=== PATIENT | male | born 1955 | race Caucasian/White ===

== ENCOUNTER 2024-07-09 22:24 | Emergency (ER) | payer OTHER, SELFPAY ==
[2024-07-09 22:32] VITALS: BP 170/125
[2024-07-09 22:59] LABS: % Basophils 0.3 % (0-2); % Eosinophils 0.2 % (0-6); % Immature Granulocytes 0.4 % (0-0.5); % Lymphocytes 6.6 % (20.5-51.1); % Monocytes 11.1 % (1.7-9.3); % Neutrophils 81.4 % (42.2-75.2); Absolute Lymphocytes 0.7 10^3/uL (1.2-3.4); Absolute Monocytes 1.1 10^3/uL (0.1-0.6); Absolute Neutrophils 8.4 10^3/uL (1.4-6.5); Hematocrit 41.2 % (39.0-52.0); Hemoglobin 14.9 g/dL (13.0-18.0); Mean Corp Hgb Conc. 36.2 g/dL (33.0-37.0); Mean Corpuscular Hgb 30.3 pg (27.0-31.0); Mean Corpuscular Volume 83.9 fL (80.0-94.0); Mean Platelet Volume 9.6 fL (7.4-10.4); Nucleated Red Blood Cells % 0 % (-); Platelet Count 289 10^3/uL (130-400); Red Blood Cell Count 4.91 10^6/uL (4.70-6.10); Red Cell Dist. Width 12.2 % (11.5-14.5); White Blood Cell Count 10.3 10^3/uL (4.8-10.8)
[2024-07-09 23:20] LABS: Lipase 34 U/L (23-300)
[2024-07-10 00:21] LABS: ALT (SGPT) 27 U/L (0-50); AST (SGOT) 31 U/L (17-59); Albumin 4.7 g/dl (3.5-5.0); Alkaline Phosphatase 78 U/L (38-126); Blood Urea Nitrogen 11 mg/dl (9-20); Calcium 9.9 mg/dl (8.4-10.2); Carbon Dioxide 23 mmol/L (22-30); Chloride 94 mmol/L (98-107); Glucose 142 mg/dl (70-99); Potassium 4.2 mmol/L (3.5-5.1); Sodium 127 mmol/L (135-145); Total Bilirubin 0.9 mg/dl (0.2-1.3); Total Protein 7.5 g/dl (6.3-8.2); eGFR > 60.00
[2024-07-10] MEDS: VALIUM INJECTION 2.5 MG IV (01:12)
--- NOTE | 2024-07-10 01:22 | ED.GENMED ---
History of Present Illness
General
Chief Complaint: Abdominal Symptoms
Source: patient
Exam Limitations: none
Time Seen by Provider: 07/09/24 23:57
Nursing documentation reviewed up to this point in time: agreed with
History of Present Illness
History of Present Illness:
This a pleasant 68-year-old male presents to the emergency department with lower abdominal pain, urinary retention, and constipation. Patient states that symptoms began this afternoon. Went to urgent care and given medication without improvement.
Came here is still not having urinated and was seen for urinary retention. Bladder scan showed a full bladder. Several attempts by nursing to place a Estrada catheter were unsuccessful. I did attempt with a coud�. I used a 16 [place] and very
gently I tried to pass the catheter. I did meet resistance. I did not try to push past the prostate. I contacted Dr. Omer. He came into the emergency department and was able to place a Estrada using a cystoscope. Patient is not on any blood
thinners. He works as a chiropractor
Review of Systems
Review of Systems
Allergies reviewed?: Yes
All Other Systems: ROS reviewed and negative except as documented in HPI and ROS
Constitutional: Reports no symptoms
EENT: Reports no symptoms
Respiratory: Reports no symptoms
Cardiac: Reports no symptoms
ABD/GI: Reports abdominal pain
: Reports difficulty voiding
Musculoskeletal: Reports no symptoms
Skin: Reports no symptoms
Neurological: Reports no symptoms
Endocrine: Reports no symptoms
Hematologic/Lymphatic: Reports no symptoms
Psychiatric: Reports no symptoms
Phy Exam
General Physical Exam
General Presentation: moderate distress
General age: appears stated age
General Skin: warm and dry
General Habitus: normal
General Mental: alert
General Hydration: appears well hydrated
Cardiovascular Exam
Cardiovascular Exam: regular rate/rhythm and no edema
Pulmonary Exam
Pulmonary Exam: lungs clear and no respiratory distress
Neurological Exam
Neurological Exam: alert and oriented x3
Musculoskeletal Exam
Musculoskeletal Exam: full ROM and neck pain
Skin Exam
Skin Exam: normal color and warm/dry
Psychiatric Exam
Psychiatric Exam: normal mood/affect
Course
Orders/Labs/Results
Orders:
Orders
07/09/24 22:36
EKG [Electrocardiogram (*1)] Urgent
Reason for Study: Abdominal Pain
EKG- Treatment ONCE
07/09/24 22:51
CBC/With Diff [Complete Blood Count/With Diff] Urgent
Lipase Urgent
07/09/24 23:54
Comprehensive Metabolic Panel Urgent
07/10/24 01:08
diazePAM [Valium Injection] 10 mg .ROUTE .STK-MED ONE
07/10/24 01:11
diazePAM [Valium Injection] 2.5 mg IV NOW STA
07/10/24 01:40
Sulfamethox./Trimethoprim Ds [Bactrim Ds 800 mg/160 mg] 1 tablet PO NOW STA
Tamsulosin [Flomax] 0.4 mg PO NOW STA
07/10/24 01:54
Urine Culture Urgent
AFIA Source: Urine
Specimen Description:
Obtained by: Indwelling Catheter
Date Specimen was Collected: 07/10/24
Time Specimen was Collected: 01:52
07/10/24 02:06
0.9% Sodium Chloride 500 ml [Nss] 500 ml IV BOLUS
Abnormal Lab Results
07/09/24 07/09/24
22:51 23:54
Absolute Neuts (auto) 8.4 H 10^3/uL
(1.4-6.5)
Absolute Lymphs (auto) 0.7 L 10^3/uL
(1.2-3.4)
Absolute Monos (auto) 1.1 H 10^3/uL
(0.1-0.6)
Neutrophils % 81.4 H %
(42.2-75.2)
Lymphocytes % 6.6 L %
(20.5-51.1)
Monocytes % 11.1 H %
(1.7-9.3)
Sodium 127 L mmol/L
(135-145)
Chloride 94 L mmol/L
(98-107)
Glucose 142 H mg/dl
(70-99)
07/09/24 22:51
07/09/24 23:54
Vital Signs
Initial and Last Documented VS:
Initial Vital Signs
Temp Pulse Resp BP Pulse Ox
97.6 F 135 15 170/125 97
07/09/24 22:32 07/09/24 22:32 07/09/24 22:32 07/09/24 22:32 07/09/24 22:32
Last Documented Vital Signs
Temp Pulse Resp BP Pulse Ox
97.6 F 94 18 158/95 96
07/09/24 22:32 07/10/24 01:56 07/10/24 01:56 07/10/24 01:56 07/10/24 01:56
*Critical Care Note
Total Time (30-74mins, 75-104mins- exclusive of procedures): Not Applicable
Update Note
Update Note:
Dr. Omer present at the bedside
Dr. Omer was able to do a cystoscope and placed a Estrada using Seldinger technique. 2200 cc of clear yellow urine drained. Patient tolerated procedure well. Will be started on Bactrim. Will be given Flomax. Will follow-up with Dr. Omer in
his office sometime next week.
ED Attending Note
-
Portions of this chart may have been created with voice recognition software.� Occasional wrong word or��sound alike� substitutions may have occurred due to the inherent limitations of voice recognition software.
Discharge Plan
Departure
Patient Disposition: Home (Routine Discharge)
Date of Disposition: 07/10/24
Time of Disposition: 01:38
Patient with high blood pressure during this ER visit?: Yes
Condition: Good
Discharge Problem:
Acute urinary retention, Hyponatremia
Instructions: How to Care for Your Estrada Catheter, Male, Hyponatremia, Urinary retention - Discharge instructions
Prescriptions:
New
sulfamethoxazole-trimethoprim [Bactrim DS] 800-160 mg tablet
1 tab PO BID Qty: 20 0RF
tamsulosin [Flomax] 0.4 mg capsule
0.4 mg PO DAILY Qty: 7 0RF
Referrals:
Ridge Omer Jr., MD [Active] - Call in 1-3 days for appt
EDI CELESTIN MD [Primary Care Provider] -
Activity Restrictions/Additional Instructions:
Please continue to manage your hyponatremia, as discussed
It was a pleasure meeting you and taking part in your care. We hope for your continued healing and wellness.
Please read discharge instructions in their entirety. However, they are for general education and may not describe your exact diagnosis at discharge. Information on your ER visit and medical conditions were discussed with you along with appropriate
follow up information...
If indicated, please take your medications as instructed and indicated on discharge paperwork.
Please schedule a follow up appointment as directed. Call to schedule an appointment
Please return to the emergency department with ANY change in, persisting, or worsening of symptoms. If any of your symptoms do not improve, or persist, or become more severe within 6-12 hours, please return to the emergency department for further
care.
Please return to the emergency department if you develop a headache, neck pain/stiffness, fever greater than 100.4F, chest pain, shortness of breath, persistent nausea, vomiting, slurred speech, difficulty walking, numbness/tingling, weakness, signs
of infection or any other symptoms that are worrisome to you.
If you have any questions or concerns please do not hesitate to call the Hospital at or E-mail me directly at [email or web address]
Interventions
Interventions:
*Risk Screen - Suicide Last Done: 03/25/25 22:32
*General Assessment Last Done: 07/09/24 22:32
*Neglect/Abuse Screening Last Done: 07/09/24 22:32
*ED COVID-19 Vaccine History Last Done: 07/09/24 22:32
JL-Xnhxwx-Jqokogwrqb Assessment Last Done: 07/10/24 00:37
Discharge Date and Time
Print Language: [place] CITIZ[place]
--- NOTE | 2024-07-10 01:39 | CON.MD ---
Consultation - Medical
-
see dictated note
pt with [facility]
unable to pass finch
flex cysto performed at bedside- sig BPH- scope passed into bladder and over a wire an 18 bar[place] cath was placed
pt to be discharged with antibx and flomax
f/u as outpt
[2024-07-10] MEDS: BACTRIM DS 800 MG/160 MG 1 TABLET PO (01:49)
[2024-07-10] MEDS: FLOMAX 0.4 MG PO (01:49)
[2024-07-10 01:56] VITALS: BP 158/95
== END 2024-07-10 02:34 | disposition home or self-care (01) ==
LOC: EMR 22:24
PROVIDERS: Student in an Organized Health Care Education/Training Program; EMERGENCY PHYSICIAN Student in an Organized Health Care Education/Training Program; OTHER PHYSICIAN Specialist; PRIMARYCARE PHYSICIAN General Practice
DX: N40.1 Benign prostatic hyperplasia with lower urinary tract symptoms (principal); R33.8 Other retention of urine; E87.1 Hypo-osmolality and hyponatremia; I10 Essential (primary) hypertension
CPT/HCPCS: 99284; 96374; 51703; 80053; 83690; 85025; 87086; 93005